=== PATIENT | female | born 1990 | race Caucasian/White ===

== ENCOUNTER 2017-10-26 12:59 | Outpatient (CLI) ==
[2017-02-16 11:20] VITALS: BMI 34.3
== END 2017-10-26 13:00 | disposition home or self-care (01) ==
LOC: LAB 12:59
PROVIDERS: ATTEND Nurse Practitioner Family
DX: R05 Cough (principal)
CPT/HCPCS: 87502

== ENCOUNTER 2018-06-04 11:07 | Outpatient (CLI) ==
[2017-02-16 11:20] VITALS: BMI 34.3
== END 2018-06-04 11:08 | disposition home or self-care (01) ==
LOC: RHC-LAB 11:07
PROVIDERS: ATTEND Nurse Practitioner Family
DX: J02.9 Acute pharyngitis, unspecified (principal)
CPT/HCPCS: 87651

== ENCOUNTER 2018-06-27 09:09 | Emergency (ER) ==
[2018-06-27 09:16] VITALS: BP 138/96; TEMP 99.3; BMI 33.3
--- NOTE | 2018-06-27 09:24 | ED.PDOC ---
General ED Provider: Dr. DAGOBERTO PINK-ER Chief Complaint: Tooth Problem Stated Complaint: my tooth hurts Time Seen by Physician: 09:22 Mode of Arrival: Walk-In Information Source: Patient Exam Limitations: No limitations Primary Care Provider: REMEDIOS GOVEA Nursing and Triage Documentation Reviewed and Agree: Yes Does patient meet sepsis criteria?: No System Inflammatory Response Syndrome: Not Applicable Sepsis Protocol: For patient's 13 years and over: Temp is 96.8 and below OR 101 and greater Pulse >90 BPM Resp >20/minute Acutely Altered Mental Status Are patient's symptoms suggestive of a new infection, such as: -Pneumonia -Skin, Soft Tissue -Endocarditis -UTI -Bone, Joint Infection -Implantable Device -Acute Abdominal Infection -Wound Infection -Meningitis -Blood Stream Catheter Infection -Unknown EENT Complaint Exam - Dental/Oral Complaint/Exam Mechanism of Injury: No known trauma Onset/Duration: 2 days Symptoms Are: Still present Timing: Constant Initial Severity: Mild Current Severity: Moderate Location: right upper molar Character: Reports: Dull, Aching, Throbbing Aggravating: Reports: Chewing Alleviating: Reports: None Associated Signs and Symptoms: Reports: Swelling, Discharge Related History: Reports: Previous tooth problem Tooth Findings: Present: Gross decay, Gross caries, Abcess Cervical Lymphadenopathy Present: No Facial Swelling Present: No Bleeding Present: No Oropharynx Findings: Absent: Clots, Active bleeding Septal Hematoma: No Foreign Body Present: No Dysphagia Present: No Drooling Present: No Asymmetrical Tonsillar Swelling Present: No Uvula Midline: Yes Radha-tonsillar Fluctuence: No Trismus Present: No Palatal Petechiae Present: No Scarlatinaform Rash Present: No Differential Diagnoses: Cluster Headaches, Dental Abcess, Dental Caries Review of Systems - Review Of Systems Constitutional: Reports: No symptoms Eyes: Reports: No symptoms Ears, Nose, Mouth, Throat: Reports: Mouth pain, Mouth swelling Respiratory: Reports: No symptoms Cardiac: Reports: No symptoms GI: Reports: No symptoms : Reports: No symptoms Musculoskeletal: Reports: No symptoms Skin: Reports: No symptoms Neurological: Reports: No symptoms Endocrine: Reports: No symptoms Hematologic/Lymphatic: Reports: No symptoms All Other Systems: Reviewed and Negative Past Medical History - Past Medical History Previously Healthy: Yes Endocrine: Reports: None Cardiovascular: Reports: None Respiratory: Reports: None Hematological: Reports: None Gastrointestinal: Reports: Liver, Gallstones Genitourinary: Reports: None Neuro/Psych: Reports: None Musculoskeletal: Reports: None Cancer: Reports: None Last Menstrual Period: na - Surgical History General Surgical History: Reports: None - Family History Family History: Reports: Unknown - Social History Smoking Status: Vaping Hx Substance Use: No Alcohol Screening: Occasionally - Immunizations Tetanus Shot up to Date: Yes Physical Exam - Physical Exam Appearance: Well-appearing, No pain distress, Well-nourished Pain Distress: Moderate Eyes: TRE, EOMI, Conjunctiva clear ENT: Ears normal, Nose normal, Oropharynx normal (noted right upper molar with tender gums and erythema) Neck: Supple Respiratory: Airway patent, Breath sounds clear, Breath sounds equal, Respirations nonlabored Cardiovascular: RRR GI/: Soft, Nontender, No masses, Bowel sounds normal, No Organomegaly Musculoskeletal: Normal strength Skin: Warm, Dry, Normal color Neurological: Sensation intact, Motor intact, Reflexes intact, Cranial nerves intact, Alert, Oriented Psychiatric: Affect appropriate, Mood appropriate Critical Care Note - Critical Care Note Total Time (mins): 0 Course - Course Vital Signs: Temp Pulse Resp BP Pulse Ox 06/27/18 09:10 99.3 F 88 16 138/96 H 99 Departure - Departure Time of Disposition: 09:24 Disposition: HOME SELF-CARE Discharge Problem: Toothache Instructions: Dental Abscess (ED) Condition: Good Pt referred to PMD for follow-up: Yes IPMP verified?: No Additional Instructions: augmentin 875mg bid x 7 days--norco 10 mg q 4hrs prn pain #12---f/u dentist melvin Allergies/Adverse Reactions: Allergies azithromycin Adverse Reaction (Verified 06/27/18 09:17) Disposition Discussed With: Patient, Family
== END 2018-06-27 09:31 | disposition home or self-care (01) ==
LOC: ED 09:09
DX: K04.7 Periapical abscess without sinus (principal); K02.7 Dental root caries; K08.89 Other specified disorders of teeth and supporting structures
CPT/HCPCS: 99281

== ENCOUNTER 2018-10-26 11:32 | Outpatient (CLI) ==
[2018-10-26] MEDS ORDERED: ALBUTEROL 0.083% NEB NEB STA (12:17)
== END 2018-10-26 11:33 | disposition home or self-care (01) ==
LOC: CAR 11:32
PROVIDERS: ATTEND Family Medicine
DX: J45.41 Moderate persistent asthma with (acute) exacerbation (principal)

== ENCOUNTER 2019-02-01 10:48 | Outpatient (CLI) | END 2019-02-01 10:49 | disposition home or self-care (01) | LOC: RHC-LAB 10:48 → FCC-LAB 10:49 | PROVIDERS: ATTEND Family Medicine | DX: K76.0 Fatty (change of) liver, not elsewhere classified (principal) | CPT/HCPCS: 36415; 80053; 80061 ==